=== PATIENT | female | born 1950 | race Caucasian/White ===

== ENCOUNTER 2017-05-14 11:09 | Inpatient (IN) | payer BC ==
[2017-05-14] MEDS ORDERED: morphine 2 MG INJ IV (13:30)
[2017-05-14] MEDS ORDERED: POLYMYXIN/BACITRACIN 1L IRRIG (13:37)
[2017-05-14] MEDS: SOD CHLORIDE 0.9% 1,000 ML IV ×2 (14:45→20:51)
[2017-05-14 14:48] LABS: ADD MAN DIFF? NO
[2017-05-14 14:55] LABS: BASOPHILS % 0.1 % (0.0-2.0); EOSINOPHILS % 0.1 % (0.0-7.0); HEMATOCRIT 32.1 % (37.0-47.0); HEMOGLOBIN 11.2 g/dl (12.0-16.0); LYMPHOCYTES # 0.9 10^3/ul (0.8-2.9); LYMPHOCYTES % 5.9 % (15.0-51.0); MEAN CORPUSCULAR HEMOGLOBIN 28.9 pg (29.0-33.0); MEAN CORPUSCULAR HGB CONC 34.9 g/dl (32.0-37.0); MEAN CORPUSCULAR VOLUME 82.9 fl (82.0-101.0); MEAN PLATELET VOLUME 10.3 fl (7.4-10.4); MONOCYTE # 0.8 10^3/ul (0.3-0.9); MONOCYTES % 5.4 % (0.0-11.0); NEUTROPHIL # 12.8 10^3/ul (1.6-7.5); NEUTROPHILS % 87.7 % (39.0-77.0); PLATELET COUNT 240 10^3/UL (140-415); RED BLOOD COUNT 3.87 10^6/ul (4.20-5.40)
[2017-05-14 14:55] LABS: WHITE BLOOD COUNT 14.5 10^3/ul (4.8-10.8)
[2017-05-14 15:13] LABS: ANION GAP 15 (8-16); BLOOD UREA NITROGEN 14 mg/dl (7-20); CALCIUM 9.2 mg/dl (8.4-10.2); CARBON DIOXIDE 24 mmol/L (21-31); CHLORIDE 94 mmol/L (97-110); CREATININE 0.61 mg/dl (0.44-1.00); GLUCOSE 130 mg/dl (70-220); MAGNESIUM 1.7 mg/dl (1.7-2.5); PHOSPHORUS 3.4 mg/dl (2.5-4.9); POTASSIUM 4.1 mmol/L (3.5-5.1); SODIUM 129 mmol/L (135-144)
[2017-05-14] MEDS: TIMOLOL 0.5% BOTH EYES (15:39)
[2017-05-14] MEDS ORDERED: CEFAZOLIN 1 GM INJ (16:00)
[2017-05-14] MEDS ORDERED: PROPOFOL 20 ML (16:00)
[2017-05-14] MEDS ORDERED: MIDAZOLAM 1 MG/ML 2 ML INJ (16:01)
[2017-05-14] MEDS ORDERED: ONDANSETRON 4 MG INJ (16:01)
[2017-05-14] MEDS ORDERED: morphine SULFATE/PF (10 MG/10 ML) INJ (16:01)
[2017-05-14] MEDS ORDERED: METOCLOPRAMIDE 10 MG INJ (16:01)
[2017-05-14 16:20] LABS: ADD UMIC YES; UR AMORPHOUS CRYSTAL FEW /HPF (NONE SEEN); UR ASCORBIC ACID NEGATIVE (NEGATIVE); UR BACTERIA FEW /HPF (NONE SEEN); UR BILIRUBIN (Dip) NEGATIVE (NEGATIVE); UR BLOOD (Dip) 2+ mg/dL (NEGATIVE); UR CLARITY CLEAR (CLEAR); UR COLOR YELLOW (YELLOW); UR GLUCOSE (Dip) NEGATIVE (NEGATIVE); UR KETONES (Dip) NEGATIVE (NEGATIVE); UR LEUKOCYTE ESTERASE (Dip) NEGATIVE Leu/ul (NEGATIVE); UR NITRITE (Dip) NEGATIVE (NEGATIVE); UR RBC 9 /HPF (0-5); UR SPECIFIC GRAVITY (Dip) 1.008 (1.003-1.030); UR TOTAL PROTEIN (Dip) NEGATIVE (NEGATIVE); UR UROBILINOGEN (Dip) NEGATIVE (NEGATIVE); UR WBC 4 /HPF (0-5)
[2017-05-14 16:35] LABS: CREATININE,URINE RANDOM 26.65 mg/dl (20-320)
[2017-05-14 16:35] LABS: SODIUM,URINE RANDOM 98 mmol/L (30-90)
[2017-05-14 16:37] LABS: URIC ACID 2.2 mg/dl (3.1-7.9)
[2017-05-14] MEDS ORDERED: FENTAnyl 50 MCG/ML VIAL (16:45)
[2017-05-14] MEDS ORDERED: TRANEXAMIC ACID 1,000 MG in DEXTROSE 5% 100 ML IV (17:00)
[2017-05-14 17:08] LABS: THYROID STIMULATING HORMONE 0.999 MIU/L (0.465-4.680)
[2017-05-14] MEDS ORDERED: ACETAMINOPHEN 1000MG/100ML IV 100 ML (17:09)
[2017-05-14] MEDS: BACITRACIN 50000 UNITS INJ (17:51)
[2017-05-14] MEDS ORDERED: POLYMYXIN B 500000 UNIT INJ (17:57)
[2017-05-14] MEDS: TRANEXAMIC ACID 1,000 MG in DEXTROSE 5% 100 ML IV (18:17)
[2017-05-14] MEDS: POLYMYXIN B 500000 UNIT INJ (18:48)
[2017-05-14] MEDS ORDERED: EPHEDrine SULFATE 50 MG/5 ML SYG IV (19:00)
[2017-05-14] MEDS ORDERED: HYDROmorphONE (0.2 MG/ML) 10ML SYG IV ×3 (19:00)
[2017-05-14] MEDS ORDERED: DIPHENHYDRAMINE 50 MG INJ IV (19:00)
[2017-05-14] MEDS ORDERED: ONDANSETRON 4 MG INJ IV (19:00)
[2017-05-14] MEDS ORDERED: ROPIVACAINE 0.5 % 30 ML VIAL (19:14)
[2017-05-14 19:41] LABS: OSMOLALITY 267 mOsm/kg (280-295)
[2017-05-14 19:42] LABS: OSMOLALITY,URINE 353 mOsm/kg (250-1200)
[2017-05-14] MEDS ORDERED: EPHEDrine SULFATE 50 MG/5 ML SYG (19:47)
[2017-05-14] MEDS ORDERED: BISACODYL 10 MG SUPP PR (20:00)
[2017-05-14] MEDS ORDERED: MAGNESIUM HYDROXIDE 30ML CUP PO (20:00)
[2017-05-14] MEDS ORDERED: NALOXONE (0.4 MG/ML) INJ IV (20:00)
[2017-05-14] MEDS ORDERED: DIPHENHYDRAMINE 50 MG INJ IM (20:00)
[2017-05-14] MEDS ORDERED: NA PHOSPHATE/BIPHOS 133 ML ENEMA PR (20:00)
[2017-05-14] MEDS ORDERED: NACL 0.9% 3 ML SYG IV (20:00)
[2017-05-14] MEDS ORDERED: oxyCODONE 5 MG TAB PO ×2 (20:00)
[2017-05-14] MEDS ORDERED: HYDROCODONE/APAP (5/325) TAB PO (20:00)
[2017-05-14] MEDS ORDERED: BETHANECHOL 25 MG TAB PO (20:00)
[2017-05-14] MEDS ORDERED: SENNA/DOCUSATE NA (8.6MG/50MG) TAB PO (20:00)
[2017-05-14] MEDS: CEFAZOLIN 1 GM/50 ML (PMX) 50 ML IVPB (20:49)
[2017-05-14] MEDS: ASPIRIN (EC) 325 MG TAB PO (20:50)
[2017-05-14] MEDS: DOCUSATE SODIUM 100 MG CAP PO (20:50)
[2017-05-14] MEDS: ONDANSETRON 4 MG INJ IV (20:51)
[2017-05-14] MEDS: ATORVASTATIN 40 MG TAB PO (21:49)
[2017-05-14] MEDS: LATANOPROST 0.005% 2.5 ML OPH BOTH EYES (21:49)
[2017-05-14] MEDS: GABAPENTIN 100 MG CAP PO (21:49)
[2017-05-15] MEDS: ONDANSETRON 4 MG INJ IV ×3 (01:02→14:20)
[2017-05-15] MEDS: ZOLPIDEM 5 MG TAB PO (01:02)
[2017-05-15 04:38] LABS: ADD MAN DIFF? NO
[2017-05-15 04:47] LABS: ABNORMAL IP MESSAGE 1; BASOPHILS % 0.1 % (0.0-2.0); HEMATOCRIT 29.9 % (37.0-47.0); LYMPHOCYTES # 0.6 10^3/ul (0.8-2.9); LYMPHOCYTES % 4.2 % (15.0-51.0); MEAN CORPUSCULAR HEMOGLOBIN 28.2 pg (29.0-33.0); MEAN CORPUSCULAR HGB CONC 33.4 g/dl (32.0-37.0); MEAN CORPUSCULAR VOLUME 84.2 fl (82.0-101.0); MEAN PLATELET VOLUME 9.6 fl (7.4-10.4); MONOCYTE # 1.1 10^3/ul (0.3-0.9); MONOCYTES % 7.9 % (0.0-11.0); NEUTROPHIL # 12.2 10^3/ul (1.6-7.5); NEUTROPHILS % 87.1 % (39.0-77.0); PLATELET COUNT 223 10^3/UL (140-415); RED BLOOD COUNT 3.55 10^6/ul (4.20-5.40); RED CELL DISTRIBUTION WIDTH 13.1 % (11.5-14.5)
[2017-05-15 04:51] LABS: POSITIVE DIFF @See below
[2017-05-15 05:03] LABS: ANION GAP 16 (8-16); BLOOD UREA NITROGEN 12 mg/dl (7-20); CALCIUM 8.9 mg/dl (8.4-10.2); CARBON DIOXIDE 25 mmol/L (21-31); CHLORIDE 95 mmol/L (97-110); CREATININE 0.58 mg/dl (0.44-1.00); GLUCOSE 157 mg/dl (70-220); POTASSIUM 4.4 mmol/L (3.5-5.1); SODIUM 132 mmol/L (135-144)
[2017-05-15] MEDS: PANTOPRAZOLE (EC) 40 MG TAB PO (05:04)
[2017-05-15] MEDS: CEFAZOLIN 1 GM/50 ML (PMX) 50 ML IVPB ×2 (05:06→12:46)
[2017-05-15] MEDS ORDERED: PATIENT'S OWN MEDICATION PO (09:00)
[2017-05-15] MEDS: CELECOXIB 200 MG CAP PO ×2 (09:14→21:27)
[2017-05-15] MEDS: TIMOLOL 0.5% BOTH EYES (09:15)
[2017-05-15] MEDS: FERROUS FUMARATE (SR) TAB PO ×2 (09:15→21:28)
[2017-05-15] MEDS: GABAPENTIN 100 MG CAP PO ×2 (09:15→21:27)
[2017-05-15] MEDS: DOCUSATE SODIUM 100 MG CAP PO ×2 (09:15→21:28)
[2017-05-15] MEDS: ASPIRIN (EC) 325 MG TAB PO ×2 (09:15→21:27)
[2017-05-15 15:42] LABS: ADD UMIC YES; UR ASCORBIC ACID NEGATIVE (NEGATIVE); UR BILIRUBIN (Dip) NEGATIVE (NEGATIVE); UR BLOOD (Dip) 2+ mg/dL (NEGATIVE); UR CLARITY SLIGHTLY CLOUDY (CLEAR); UR COLOR YELLOW (YELLOW); UR GLUCOSE (Dip) 1+ mg/dL (NEGATIVE); UR KETONES (Dip) NEGATIVE (NEGATIVE); UR LEUKOCYTE ESTERASE (Dip) 1+ Leu/ul (NEGATIVE); UR MUCUS MODERATE /HPF (NONE SEEN); UR NITRITE (Dip) NEGATIVE (NEGATIVE); UR RBC 13 /HPF (0-5); UR TOTAL PROTEIN (Dip) 1+ mg/dl (NEGATIVE); UR UROBILINOGEN (Dip) NEGATIVE (NEGATIVE); UR WBC 16 /HPF (0-5)
[2017-05-15 15:47] LABS: CREATININE, RANDOM URINE 34 mg/dL (20-320); MICROALBUMIN 1.6 mg/dL; MICROALBUMIN/CREATININE RATIO 47 (<30)
[2017-05-15] MEDS: ATORVASTATIN 40 MG TAB PO (21:28)
[2017-05-15] MEDS: LATANOPROST 0.005% 2.5 ML OPH BOTH EYES (21:33)
[2017-05-16 04:47] LABS: ADD MAN DIFF? NO
[2017-05-16 04:51] LABS: WHITE BLOOD COUNT 14.2 10^3/ul (4.8-10.8)
[2017-05-16 04:51] LABS: ABNORMAL IP MESSAGE 1; BASOPHILS % 0.1 % (0.0-2.0); EOSINOPHILS # 0.1 10^3/ul (0.0-0.5); EOSINOPHILS % 0.8 % (0.0-7.0); HEMATOCRIT 25.8 % (37.0-47.0); HEMOGLOBIN 8.9 g/dl (12.0-16.0); LYMPHOCYTES # 1.5 10^3/ul (0.8-2.9); LYMPHOCYTES % 10.5 % (15.0-51.0); MEAN CORPUSCULAR HEMOGLOBIN 28.6 pg (29.0-33.0); MEAN CORPUSCULAR HGB CONC 34.5 g/dl (32.0-37.0); MEAN PLATELET VOLUME 9.8 fl (7.4-10.4); MONOCYTE # 1.8 10^3/ul (0.3-0.9); MONOCYTES % 12.4 % (0.0-11.0); NEUTROPHIL # 10.8 10^3/ul (1.6-7.5); NEUTROPHILS % 75.6 % (39.0-77.0); PLATELET COUNT 227 10^3/UL (140-415); RED BLOOD COUNT 3.11 10^6/ul (4.20-5.40); RED CELL DISTRIBUTION WIDTH 13.2 % (11.5-14.5)
[2017-05-16 04:57] LABS: POSITIVE DIFF @See below
[2017-05-16 05:13] LABS: ANION GAP 12 (8-16); BLOOD UREA NITROGEN 22 mg/dl (7-20); CARBON DIOXIDE 26 mmol/L (21-31); CHLORIDE 94 mmol/L (97-110); CREATININE 0.74 mg/dl (0.44-1.00); GLUCOSE 117 mg/dl (70-220); POTASSIUM 4.1 mmol/L (3.5-5.1); SODIUM 128 mmol/L (135-144)
[2017-05-16] MEDS: PANTOPRAZOLE (EC) 40 MG TAB PO (06:29)
[2017-05-16] MEDS: FERROUS FUMARATE (SR) TAB PO (08:35)
[2017-05-16] MEDS: DOCUSATE SODIUM 100 MG CAP PO (08:36)
[2017-05-16] MEDS: CELECOXIB 200 MG CAP PO (08:36)
[2017-05-16] MEDS: GABAPENTIN 100 MG CAP PO (08:36)
[2017-05-16] MEDS: ASPIRIN (EC) 325 MG TAB PO (08:36)
[2017-05-16] MEDS: TIMOLOL 0.5% BOTH EYES (08:36)
== END 2017-05-16 17:20 | disposition home health service (06) | DRG 470 ==
LOC: REC 11:09 → MS1 11:48
PROC: 0SRB04A Replacement of Left Hip Joint with Ceramic on Polyethylene Synthetic Substitute, Uncemented, Open Approach (ICD-10-PCS; principal; 2017-05-14 16:00)
DX: S72.002A Fracture of unspecified part of neck of left femur, initial encounter for closed fracture (principal); E87.1 Hypo-osmolality and hyponatremia; W18.09XA Striking against other object with subsequent fall, initial encounter
CPT/HCPCS: 72170; 73500; 73510; 73530; 80048; 81001; 81003; 82043; 82533; 83735; 83930; 83935; 84100; 84155; 84300; 84443; 84560; 85025; 86850; 86900; 86901; 87086; 97110; 97116; 97162; 97165; 97530; 97535